=== PATIENT | male | born 1965 | race Caucasian/White ===

== ENCOUNTER 2016-11-25 12:18 | Day surgery (SDC) | payer OTHER ==
[~2016-11-25] VITALS: Ht 175.3 cm; Wt 94.3 kg
[2016-11-25 12:49] VITALS: BP 167/98; PULSE 72; TEMP 97.3
[2016-11-25] MEDS ORDERED: HCTZ12.5TAB PO (12:56)
[2016-11-25] MEDS ORDERED: COZAAR 50MG50 MG/TAB PO (12:57)
[2016-11-25] MEDS ORDERED: NORVASC 5MG5 MG/TAB PO (12:58)
[2016-11-25] MEDS ORDERED: PRILOSEC 20MG20 MG PO (12:58)
[2016-11-25] MEDS ORDERED: CLARITIN 1010 MG/TAB PO (12:59)
[2016-11-25 15:50] VITALS: BP 136/92; PULSE 66; TEMP 97.1
[2016-11-25 16:05] VITALS: BP 145/88; PULSE 70
[2016-11-25 16:10] VITALS: BP 142/92; PULSE 62; TEMP 97.1
== END 2016-11-25 16:34 | disposition home or self-care (01) ==
LOC: SDCO 12:18
DX: N35.9 Urethral stricture, unspecified (principal); I10 Essential (primary) hypertension; K21.9 Gastro-esophageal reflux disease without esophagitis
CPT/HCPCS: J0690; J2270; J2704; J3010; J3410; J7120